=== PATIENT | female | born 1940 | race Caucasian/White ===

== ENCOUNTER 2019-02-01 14:37 | Emergency (ER) | payer OTHER, MEDICARE ==
[~2019-02-01] VITALS: Ht 162.6 cm; Wt 67.6 kg
[2019-02-01] MEDS ORDERED: MOBIC7.5 MG PO (17:29)
[2019-02-01] MEDS ORDERED: NORCO 5-325 TA1 EAC1 PO (17:35)
[2019-02-01 17:45] VITALS: BP 153/47
== END 2019-02-01 18:18 | disposition home or self-care (01) ==
LOC: ER 14:37
DX: M54.10 Radiculopathy, site unspecified (principal); I10 Essential (primary) hypertension; E11.9 Type 2 diabetes mellitus without complications; K21.9 Gastro-esophageal reflux disease without esophagitis; Z98.890 Other specified postprocedural states